=== PATIENT | male | born 1985 ===

== ENCOUNTER 2018-04-08 17:59 | Outpatient (CLI) | payer OTHER | END 2018-04-08 19:03 | disposition home or self-care (01) | LOC: RAD 17:59 | DX: M25.572 Pain in left ankle and joints of left foot (principal) ==

== ENCOUNTER 2018-05-14 15:22 | Outpatient (CLI) | payer OTHER | END 2018-05-14 15:30 | disposition home or self-care (01) | LOC: RAD 15:22 | DX: M79.672 Pain in left foot (principal) ==